=== PATIENT | male | born 1960 | race Caucasian/White ===

== ENCOUNTER → 2020-07-22 11:05 | Outpatient (CLI) | payer BC, SELFPAY ==
[2020-07-22 11:33] LABS: Basophils # 0.1 K/mm3 (0-0.2); Eosinophils # 0.3 K/mm3 (0.0-0.4); Eosinophils % 3.1 % (0.1-12.0); Hematocrit 49.9 % (42.0-52.0); Lymphocytes # 2.6 K/mm3 (0.7-4.5); Lymphocytes % 27.6 % (10-50); Mean Corpuscular Hemoglobin 29.6 pg (27.0-31.2); Mean Platelet Volume 6.8 fl (7.4-10.4); Monocytes # 0.5 K/mm3 (0.1-1.0); Monocytes % 5.3 % (1.7-9.3); Neutrophils # 5.9 K/mm3 (1.8-7.8); Neutrophils % 62.9 % (37.0-80.0); Platelet Count 255 K/mm3 (142-424); Red Blood Count 5.73 M/mm3 (4.60-6.20); Red Cell Distribution Width 13.7 % (11.5-17.5); White Blood Count 9.4 K/mm3 (4.8-10.8)
[2020-07-22 11:48] LABS: Chloride 98 mmol/L (98-107); Potassium 4.7 mmoL/L (3.5-5.1); Sodium 138 mmol/L (136-145)
[2020-07-22 11:51] LABS: Anion Gap 11.7 mEq/L (5-15); Blood Urea Nitrogen 8 mg/dl (9-20); Calcium 9.8 mg/dl (8.4-10.2); Carbon Dioxide 33 mmol/L (22.0-30.0); Estimated Glomerular Filt Rate 86 ml/min (>60); GFR (African American) 104 ML/MIN (>60); Glucose 162 mg/dl (74-100)
[2020-07-22 16:50] LABS: Coronavirus 19 IgG Antibody Negative (Negative); Coronavirus 19 IgM Antibody Negative (Negative)
[2020-07-22 18:12] LABS: Barbiturates Screen,Urine Negative ng/ml (<200); Benzodiazepines Screen,Urine Positive ng/ml (<200)
[2020-07-22 18:13] LABS: Amphetamine/Metha Screen,Urine Negative ng/ml (<1000)
[2020-07-22 18:14] LABS: Cannabinoid Screen,Urine Negative ng/ml (<50); Cocaine Screen,Urine Negative ng/ml (<300)
[2020-07-22 18:15] LABS: Methadone Screen,Urine Negative ng/ml (<300)
[2020-07-22 18:16] LABS: Opiate Screen,Urine Negative ng/ml (<300); Phencyclidine Screen,Urine Negative ng/ml (<25)
== END ==
PROVIDERS: Visit Provider Anesthesiology
DX: Z01.818 Encounter for other preprocedural examination (principal); M51.36 Other intervertebral disc degeneration, lumbar region
CPT/HCPCS: 36415; 80048; 80305; 85025; 86328

== ENCOUNTER 2020-07-23 11:10 | Day surgery (SDC) | payer BC, SELFPAY ==
[2020-07-23 11:38] VITALS: BP 148/97; PULSE 95; RESP 18; TEMP 36.5; O2SAT 98; BMI 28.3
--- NOTE | 2020-07-23 12:33 | P.CONS_ITS ---
Assessment and Plan - Assessment and plan all Dx Assessment and Plan for all problems:: Impression-degenerative disc disease of the lumbar spine with radiculopathy Plan-placement of pain pump system today HPI - Data of Consult Patient: new to practice Consult date: 07/23/20 Requesting Physician: Niels Joel MD Primary Care Provider: Ck Juarez MD - Consult Narrative Reason for consult: Degenerative disc disease of the lumbar spine with radiculopathy History of present illness: Mr. Ignacio is a 59 year old male with chronic back pain who is tried many options over the years for pain relief without success. He had a pain stimulator trial with 60 to 70% improvement. He comes in today for placement of a pain pump system. CC: Niels Joel MD [facility] History I have reviewed the patient's past medical history: Yes Medical History: Denies:: Cancer, Diabetes Mellitus Type 1, Diabetes Mellitus Type 2, Internal Pacemaker, MRSA, Seizures *Have you ever received a pneumonia vaccine?: No *Have you received a flu vaccine this season?: No Other Medical History: Denies: Blood Transfusion Reaction Comment:: Illnesses-cigarette abuse, coronary artery disease with history of stents, hypertension, coronary artery disease with history of MD, asthma, CVA with TIAs, degenerative disc disease, anxiety depression Other Surgeries: No: Pacemaker Amputation: No Fractures: No Comment: Operations-cardiac cath with stents, colectomy with colostomy and colostomy closure for diverticulitis, angioplasty with stents - *Social History Last grade of school completed: High school graduate Smoking Status: Current every day smoker Tobacco Type: e-cigarettes # Packs/Day (cigarettes): 1 Alcohol Intake: current Alcohol Intake Frequency:: holidays/special occasions only *Occupational Status:: unemployed, disabled Housing: house Household Members: spouse *Travel in the last 8 weeks: None Family Hx:: No significant family history Review of Systems - Review of Systems Review of systems:: pertinent systems reviewed and negative unless documented below Meds Home Medications Medication Instructions Recorded Confirmed Type diazePAM [Diazepam 10 mg tablet] 10 mg PO NEEDED PRN 07/21/20 07/21/20 History Sulfamethoxazole/Trimethoprim 1 each PO BID #14 tab 07/23/20 Rx [Bactrim DS tablet] Allergies Allergy/AdvReac Type Severity Reaction Status Date / Time hydrocodone Allergy Verified 07/21/20 10:47 Penicillins Allergy Verified 07/21/20 10:47 Objective Vital signs: Temp Pulse Resp BP Pulse Ox 97.7 F 95 H 18 148/97 H 98 07/23/20 11:38 07/23/20 11:38 07/23/20 11:38 07/23/20 11:38 07/23/20 11:38 no acute distress Comments: Pale white male in no distress - *Routine Respiratory Exam Present: decreased breath sounds, CTA bilaterally - *Routine Cardiovascular Exam Present: RRR - *Routine Abdominal Exam Present: soft, normoactive bowel sounds. Absent: tenderness
--- NOTE | 2020-07-23 15:05 | HMH.ANESCL ---
[facility] Anesthesia Checklist - Structural Data Admitted From: Home Planned Operative Procedure/s: pain pump insertion Consent for Planned Operative Procedure(s) Verified: Yes - Additional verifications Anesthesia Reactions: No Hx Blood Transfusions: No Blood Transfusion Reaction: No - Airway Assessment C-Spine Mobility Assessed: Yes TMJ Mobility Assessed: Yes Dentition: Edentulous - Neurological Assessment Level of Consciousness: Awake, Alert, Appropriate - Anesthesia Plan Anesthesia Risk discussed: Yes Anesthesia Plan: Verified ASA Class: IV Anesthesia Type: MAC [facility] History I have reviewed the patient's past medical history: Yes Medical History: Denies:: Cancer, Diabetes Mellitus Type 1, Diabetes Mellitus Type 2, Internal Pacemaker, MRSA, Seizures *Have you ever received a pneumonia vaccine?: No *Have you received a flu vaccine this season?: No Other Medical History: Denies: Blood Transfusion Reaction Anesthesia experience/problems:: none Other Surgeries: No: Pacemaker Amputation: No Fractures: No - *Social History Last grade of school completed: High school graduate Smoking Status: Current every day smoker Tobacco Type: e-cigarettes # Packs/Day (cigarettes): 1 Alcohol Intake: current Alcohol Intake Frequency:: holidays/special occasions only Substance Use Type: former substance user *Occupational Status:: unemployed, disabled Housing: house Household Members: spouse *Travel in the last 8 weeks: None Family Hx:: No significant family history
--- NOTE | 2020-07-23 15:15 | HMH.OPNOTE ---
Date of procedure: 07/23/20 Pre-op Diagnosis:: Degenerative disc disease of the lumbar spine with radiculopathy Post-op Diagnosis:: Same Procedure performed:: Placement of intrathecal pain pump generator Surgeon:: Jackson Edwards MD MANAGER BENEFIT:: Justyn Rowell, Clement Dominguez, Urbano Toro, Cuco Crum, Other Anesthesia: MAC Estimated blood loss (mL): 5 Operative findings:: Not applicable Operative note:: Patient was placed prone on the operating table and his back and flank regions were prepped and draped in sterile fashion. Once adequate IV sedation was obtained utilizing anesthesia and local anesthesia utilizing 1% Xylocaine with epinephrine a paraspinal incision was made by Dr. Khan which an intrathecal catheter was passed into the intrathecal space to the area desired by Dr. Burnett. The catheter was fixed the paraspinal fascia with fixation devices and 2-0 Prolene sutures. A right flank incision was then made under which is made a pocket for placement of the reservoir. Catheter was passed from the paraspinal incision of the pocket incision utilize a tunneling device. Catheter then fixed to the generator which was placed in the pocket. Generator sutured underlying fascia with a 2-0 Prolene suture. CSF was aspirated from the generator noting patency of the system. Both pockets irrigated with antibiotic solution. Subcutaneous tissues closed with 0 Vicryl. Skin closed with 4-0 nylon sutures. Wound VAC dressing and binder applied to the wound. The patient tolerated suture well and was taken to the recovery room in stable condition. Upon recovery will be discharged home follow-up in 1 week for removal of the wound VAC bandage and in 2 weeks for removal of the sutures. 1 week of antibiotic postop per protocol. The patient tolerated the procedure well Condition: stable Disposition: PACU Complications:: None
--- NOTE | 2020-07-23 15:22 | P.OP_ITS ---
Date of procedure: 07/23/20 Pre-op Diagnosis:: Degenerative disc disease of spine with cervical radiculopathy symptoms and increasing neck pain. Degenerative disc disease of the thoracic spine with thoracic radiculopathy symptoms Post-op Diagnosis:: Same Procedure performed:: Intrathecal catheter placement with tunneling for permanent intrathecal pain pump Surgeon:: Niels Joel MD BUSINESS PROCESS EXPERT:: Justyn Rowell Anesthesia: MAC Estimated blood loss (mL): 5 Clinical Note:: Patient is a pleasant 59-year-old white male who is referred by Dr. Fernando Lomeli for placement of intrathecal pain pump. He underwent a psychological evaluation which was successful. He has failed all previous conservative therapy including physical therapy, injections and oral medications. He is not a surgical candidate. He is not on any oral narcotics. He is on diazepam 10 mg given to him by Dr. Lomeli for anxiety. He has been off of this for the last week. He got 80% relief with his intrathecal pump trial. He presents for permanent placement with us today. He would like to us to manage his pain pump after implant. Operative findings:: None Operative note:: Informed consent was obtained the risk and benefits of the procedure were explained to the patient. Patient was taken the operating room placed prone on the procedure table. He was prepped and draped in sterile fashion. C-arm fluoroscopy was used to view the lumbar spine. The skin and subcutaneous tissues were anesthetized using lidocaine adjacent to the L4-5 and L5-S1 interspace. I made an incision and dissected down to the lumbar paraspinous fascia. A 14-gauge spinal needle was inserted and advanced into the L4-5 interspace until clear CSF was obtained. After this intrathecal catheter was inserted and advanced very easily to the T6 vertebral body. The stylette of the catheter and the needle withdrawn. The cath was secured to the fascia with 2 anchoring devices and 2-0 Prolene. I prepared the pump with 20 mils of intrathecal morphine 5 mg/mL while Dr. Edwards prepared the pump pocket. I tunneled the catheter from the back to the pump pocket and attached the catheter to the pump. The pump was placed in the pocket the pump was secured to the fascia with 2-0 Prolene. Both incisions were irrigated with bacitracin solution . We were also able to withdraw very easily CSF from the side-port. Both incisions were then closed with 2-0 Vicryl followed by 4-0 nylon. A wound VAC was placed over both incisions. Patient was placed in an abdominal binder and taken recovery in stable condition. Pump was programmed by the [employer] risk control field representative and started at 0.5 mg/day of intrathecal morphine. Patient tolerated the procedure well with no complications. Patient was discharged home neurologically intact with good relief of pain symptoms. I did caution the patient against taking any Valium with the intrathecal narcoti c infusion. Plan and disposition: We will follow-up with this patient in 1 week for wound check and reprogramming. We will follow-up in 2 weeks for suture removal. We will give him his PTC if 1 of these follow-up visits. If he has any problems or questions she is to call us back in the pain clinic. Condition: stable Disposition: PACU Complications:: None
[2020-07-23 15:45] VITALS: BP 140/107; PULSE 85; RESP 18; O2SAT 96
[2020-07-23 15:56] VITALS: BP 140/90; PULSE 94; RESP 18; TEMP 36.4; O2SAT 97
[2020-07-23 16:01] VITALS: BP 146/92; PULSE 86; RESP 18; O2SAT 97
[2020-07-23 16:15] VITALS: BP 142/86; PULSE 86; RESP 18; O2SAT 99
[2020-07-23 16:45] VITALS: BP 146/84; PULSE 82; RESP 18; O2SAT 97
--- NOTE | 2020-07-25 13:06 | PC.NURSE ---
called in RX to [facility] in [facility] per md order. Flomax 0.4mg po daily. no refills.
== END 2020-07-23 16:45 | disposition home or self-care (01) ==
LOC: OR 11:17
PROVIDERS: PCP Internal Medicine Adolescent Medicine; Visit Provider Anesthesiology
PROC: (CPT 62350; principal; 2020-07-23 13:00)
DX: M50.10 Cervical disc disorder with radiculopathy, unspecified cervical region (principal); M51.14 Intervertebral disc disorders with radiculopathy, thoracic region; F19.11 Other psychoactive substance abuse, in remission; I25.10 Atherosclerotic heart disease of native coronary artery without angina pectoris; I10 Essential (primary) hypertension; Z86.73 Personal history of transient ischemic attack (TIA), and cerebral infarction without residual deficits; Z72.0 Tobacco use; Z88.0 Allergy status to penicillin; Z88.1 Allergy status to other antibiotic agents; Z88.8 Allergy status to other drugs, medicaments and biological substances; Z79.899 Other long term (current) drug therapy
CPT/HCPCS: 62350; 62362; 96374; C1755; C1772; J1956; J3370

== ENCOUNTER → 2020-07-31 15:11 | Outpatient (POV) | payer BC, SELFPAY ==
[2020-07-31 15:53] VITALS: BP 140/77; PULSE 84; RESP 18; TEMP 36.8; O2SAT 98; BMI 28.1
--- NOTE | 2020-07-31 16:23 | HMH.PMPROC ---
- Procedure Date: 07/31/20 Time: 16:23 Anesthesiologist:: Destiney Guzmán APRN Complications:: None Pre-procedure Diagnosis:: Degenerative disc disease cervical and thoracic spine, thoracic and cervical radiculopathy symptoms Post-procedure Diagnosis:: Same Indications for Procedure:: Patient is a 59-year-old white male who presents today for follow-up after intrathecal pain pump placement. Patient had his intrathecal pain pump placed on July 23. A few days post implant, the patient began to develop severe nausea vomiting with nuchal rigidity. He also had diarrhea along with urinary complications and diaphoresis. Patient did go to the emergency room and Dr. Joel was contacted via the emergency room provider. Patient presents to the clinic today with reports that some of his symptoms have improved, however, he is continuing to have nausea with vomiting and feels as though he is going to pass out. He says his urinary hesitancy has improved. He has no longer taking his Flomax. Patient does take Valium with his intrathecal therapy. He was educated regarding the Valium with intrathecal therapy. He is continuing to take the medication. Patient says that he was getting great pain relief 2 days post procedure, however, all of his subsidiary symptoms did present causing him to have worsening pain. Patient is currently on morphine at 0.5 mg/day. He says he has taken morphine in the past with no issues. He does admit, however, that he he is very sensitive to most medications. Patient does rate his pain a 2 out of 10 at this time. He says he is continuing to have some itching along with nausea and vomiting at this time. Physical exam General: Alert and oriented x3, no acute distress, pleasant and cooperative, [on room air] Lungs: Respirations even and unlabored, symmetrical chest expansion Eyes: PERRL Musculoskeletal: Flexion and extension of: Lumbar spine somewhat guarded secondary to pain, deep tendon reflexes normal, strength in upper and lower extremities [5/5], [abnormal gait noted] Neurological: Speech clear, top installer equal, no gross sensory deficit Procedure Details:: Informed consent was obtained and the risk and benefits of the procedure were explained to the patient. Patient was taken to the procedure room where noninvasive monitoring was placed including noninvasive blood pressure cuff and pulse oximeter. Patient's pump was interrogated and was reprogrammed to morphine at 0.25 mg/day. The patient tolerated the procedure well with no complications. Plan and Disposition:: Patient was decreased to morphine at 0.25 mg/day. I did discuss the plan of care with Dr. vicente and he was in agreement. We will plan to see the patient back in the clinic in 2 weeks to reassess his symptoms. Patient incision is well approximated with no redness, no drainage, no edema is noted to the site. The patient did report that he was unable to wear either binder that he was given upon discharge at the day of his implant. He says that it causes severe itching as well as irritation to his skin. I have advised the patient the reason for both binders, however, patient says he is unable to tolerate them. Patient has been advised if his symptoms continue to contact the clinic. Again, I have advised him the concerns of taking Valium with his intrathecal therapy. The patient and I specifically discussed risk factors for COVID19. These risks include, but are not limited to age greater than 60, heart or lung disease, diabetes, immunosuppression, and travel. We also discussed NSAIDs may worsen COVID19 infection or symptoms. Patient should not use NSAIDs to treat COVID19 signs or symptoms. Patient was also informed that any type of corticosteroid of any form (oral or injection) will decrease the patient's immune system response and may increase the likelihood of COVID19 infection [address] symptoms[address] Joel has reviewed this note and agrees with this plan of
== END ==
PROVIDERS: PCP Internal Medicine Adolescent Medicine; Visit Provider Clinical Nurse Specialist Family Health
DX: M50.10 Cervical disc disorder with radiculopathy, unspecified cervical region (principal); M51.14 Intervertebral disc disorders with radiculopathy, thoracic region
CPT/HCPCS: 62368

== ENCOUNTER → 2020-08-14 14:35 | Outpatient (POV) | payer BC, SELFPAY ==
[2020-08-14 15:00] VITALS: BP 139/78; PULSE 85; RESP 20; TEMP 36.7; O2SAT 985; BMI 28.0
--- NOTE | 2020-08-21 08:35 | HMH.PMPROC ---
- Procedure Date: 08/14/20 Time: 08:35 Anesthesiologist:: Destiney Guzmán APRN Complications:: None Pre-procedure Diagnosis:: Degenerative disc disease cervical and thoracic spine with cervical and thoracic radiculopathy symptoms Post-procedure Diagnosis:: Same Indications for Procedure:: Patient is a 59-year-old white male who presents today for suture removal and to discuss his new intrathecal therapy. He is reporting to have some diaphoresis with his intrathecal therapy. He would like to decrease his dose. The patient is currently on 0.25 mg/day. He says that it is helping with his pain, however, he would like to decrease in the dose to see if this helps with his symptoms. Patient's Jelani and drug screens have been appropriate. We will also remove his sutures today. Physical exam General: Alert and oriented x3, no acute distress, pleasant and cooperative, [on room air] Lungs: Respirations even and unlabored, symmetrical chest expansion Eyes: PERRL Musculoskeletal: Flexion and extension of thoracic and cervical spine somewhat guarded secondary to pain, deep tendon reflexes normal, strength in upper and lower extremities [5/5], [abnormal gait noted] Neurological: Speech clear, nurse receptionist equal, no gross sensory deficit Integumentary: Incision well approximated, no redness, no drainage, no edema noted. Sutures removed Procedure Details:: Informed consent was obtained and the risk and benefits of the procedure were explained to the patient. Patient was taken to the procedure room where noninvasive monitoring was placed including noninvasive blood pressure cuff and pulse oximeter. Patient's pump was interrogated and was reprogrammed to morphine at 0.22 mg/day. The patient tolerated the procedure well with no complications. Plan and Disposition:: We will plan to see the patient back in the clinic in 2 weeks to reassess his symptoms. He has been instructed to contact the clinic if he has any concerns before his next appointment. The patient and I specifically discussed risk factors for COVID19. These risks include, but are not limited to age greater than 60, heart or lung disease, diabetes, immunosuppression, and travel. We also discussed NSAIDs may worsen COVID19 infection or symptoms. Patient should not use NSAIDs to treat COVID19 signs or symptoms. Patient was also informed that any type of corticosteroid of any form (oral or injection) will decrease the patient's immune system response and may increase the likelihood of COVID19 [address] symptoms[address] Joel has reviewed this note and agrees with this plan of care. This note was dictated using voice recognition software and make contain errors or omissions.
== END ==
PROVIDERS: PCP Internal Medicine Adolescent Medicine; Visit Provider Clinical Nurse Specialist Family Health
DX: M50.10 Cervical disc disorder with radiculopathy, unspecified cervical region (principal); M54.14 Radiculopathy, thoracic region
CPT/HCPCS: 62368

== ENCOUNTER → 2020-08-28 14:22 | Outpatient (POV) | payer BC, SELFPAY ==
[2020-08-28 14:37] VITALS: BP 138/88; PULSE 79; RESP 18; O2SAT 97; BMI 28.8
--- NOTE | 2020-08-28 14:58 | HMH.PAINSOAP ---
[facility] Pain Management SOAP Note Subjective:: Patient is a pleasant 59-year-old white male who presents today for follow-up. He is being treated for chronic neck and mid back pain with cervical and thoracic radiculopathy symptoms. Patient does have an intrathecal pain pump. He was reporting to have some diaphoresis at his previous visit. As a result his medication was changed from morphine at 0.25 mg/day to morphine at 0.22 mg/day. The patient tolerated the decrease in medication without any problems. He says he is doing much better with his moments of diaphoresis. He rates his pain a 5 out of 10 today. He says that it is soreness more than anything. He is complaining of myofascial pain to his bilateral upper trapezius muscles as well as his cervical paraspinous muscles today. The patient does feel that the pain is tension related. He is inquiring about a raised area noted to his incisional area midline. He says that it is very sensitive to the area. Review of Systems General: No recent weight changes, no fever, no sleep disturbances Respiratory: No cough, no shortness of air, no recurring pulmonary infections Cardiovascular/peripheral vascular: No chest pain, no palpitations, no edema, no shortness of breath Gastrointestinal: No new onset incontinence, normal bowel movements reported Genitourinary: No new onset incontinence Musculoskeletal: Neck pain pain Psychiatric: Normal mood/affect Neurological: [Denies weakness in extremities], [denies balance issues] Objective:: Physical exam General: Alert and oriented x3, no acute distress, pleasant and cooperative, [on room air] Lungs: Respirations even and unlabored, symmetrical chest expansion Eyes: PERRL Musculoskeletal: Flexion and extension of cervical spine somewhat guarded secondary to pain, deep tendon reflexes normal, strength in upper and lower extremities [5/5], normal gait noted Neurological: Speech clear, sample puller equal, no gross sensory deficit Assessment:: Degenerative disc disease cervical spine with cervical radiculopathy symptoms, degenerative disc disease thoracic spine with thoracic radiculopathy symptoms Plan:: The patient is doing better with his intrathecal therapy since his small decrease in medication. The patient's Jelani #[id number] has been reviewed and is appropriate. His morphine equivalent is 0. His drug screens have been appropriate. He is having some myofascial pain to his cervical paraspinous and upper trapezius muscles. He has tried massage therapy with no relief. He has also tried using ice and heat therapies. We will plan for upper trapezius and cervical paraspinous muscle trigger point injections bilaterally. We will also schedule the patient for an intrathecal pain pump refill date for 3 months. See him back in the clinic after his trigger point injections to reassess his symptoms. He has been instructed to contact the clinic if he has any concerns before his next appointment. The patient and I specifically discussed risk factors for COVID19. These risks include, but are not limited to age greater than 60, heart or lung disease, diabetes, immunosuppression, and travel. We also discussed NSAIDs may worsen COVID19 infection or symptoms. Patient should not use NSAIDs to treat COVID19 signs or symptoms. Patient was also informed that any type of corticosteroid of any form (oral or injection) will decrease the patient's immune system response and may increase the likelihood of COVID19 [address] Joel has reviewed this note and agrees with this plan of care. This note was dictated using voice recognition software and make contain errors or omissions. [facility] History I have reviewed the patient's past medical history: Yes Medical History: Denies:: Cancer, Diabetes Mellitus Type 1, Diabetes Mellitus Type 2, Internal Pacemaker, MRSA, Seizures *Have you ever received a pneumonia vaccine?: Yes *Have you received a flu vaccine thi
== END ==
PROVIDERS: PCP Internal Medicine Adolescent Medicine; Visit Provider Clinical Nurse Specialist Family Health
DX: M50.10 Cervical disc disorder with radiculopathy, unspecified cervical region (principal); M51.14 Intervertebral disc disorders with radiculopathy, thoracic region
CPT/HCPCS: 62368

== ENCOUNTER 2020-09-08 14:02 | Day surgery (SDC) | payer BC, SELFPAY ==
[2020-09-08 14:41] VITALS: BP 165/87; PULSE 89; RESP 18; TEMP 36.8; O2SAT 98; BMI 28.8
--- NOTE | 2020-09-08 15:11 | HMH.PMPROC ---
- Procedure Date: 09/08/20 Time: 15:11 Anesthesiologist:: Poonam Hernandes APRN Complications:: None Pre-procedure Diagnosis:: Myofascial pain syndrome Post-procedure Diagnosis:: Same Indications for Procedure:: Patient is a pleasant 59-year-old white male who presents today for trigger point injections of the right trapezius muscle and cervical paraspinous muscle. Patient rates his pain today a 5 out of 10. He is currently on a morphine intrathecal pain pump which is working well for him. He gets 70% relief of his pain with this. Patient denies any side effects to this. We will move forward with trigger point injections today. He does have palpable trigger points on the right side and his trapezius muscles and cervical paraspinous. Procedure Details:: Procedure: Informed consent was obtained and the risk and benefits of the procedure were explained to the patient. Patient was taken to the procedure room. Cervical paraspinous and trapezius muscles in the right side was prepped using ChloraPrep as a cleansing solution. Trigger points were palpated and marked. Each of these trigger points were injected with 3 mL's of bupivacaine 0.25 and Depo-Medrol 10 mg. A total of 80 milligrams of Depo-Medrol was used for 8 trigger point injections. Bandages were placed over the injection sites. Patient tolerated the procedure well with no complications. Plan and Disposition:: We will see the patient back in several weeks reassess his symptoms at that time he has been instructed to call the office if he has any issues prior to his next appointment. Dr. Joel has reviewed this note and agrees with this plan of care. This note was dictated using voice recognition software and may contain errors or omissions
[2020-09-08 15:13] VITALS: BP 117/78; PULSE 87
[2020-09-08 15:14] VITALS: BP 119/78; PULSE 85; RESP 18; O2SAT 98
[2020-09-08 15:32] VITALS: BP 140/85; PULSE 82; RESP 18; O2SAT 98
== END 2020-09-08 15:34 | disposition home or self-care (01) ==
LOC: SC.PAINP 14:04
PROVIDERS: PCP Internal Medicine Adolescent Medicine; Visit Provider Clinical Nurse Specialist Family Health
DX: M79.18 Myalgia, other site (principal); J45.909 Unspecified asthma, uncomplicated; F41.9 Anxiety disorder, unspecified; F32.9 Major depressive disorder, single episode, unspecified; G43.909 Migraine, unspecified, not intractable, without status migrainosus; Z86.73 Personal history of transient ischemic attack (TIA), and cerebral infarction without residual deficits
CPT/HCPCS: 20552; J1040

== ENCOUNTER 2020-10-20 13:31 | Day surgery (SDC) | payer BC, SELFPAY ==
[2020-10-20 13:52] VITALS: BP 154/86; PULSE 75; RESP 18; TEMP 36.6; O2SAT 98; BMI 29.2
[2020-10-20 14:09] VITALS: BP 165/74; PULSE 85; RESP 18; O2SAT 98
[2020-10-20 14:15] VITALS: BP 165/74; PULSE 88; RESP 18; O2SAT 99
--- NOTE | 2020-10-20 14:23 | HMH.PMPROC ---
- Procedure Date: 10/20/20 Time: 14:23 Anesthesiologist:: Poonam Hernandes APRN Complications:: None Pre-procedure Diagnosis:: Degenerative disc disease cervical spine cervical radiculopathy, Post-procedure Diagnosis:: Same Indications for Procedure:: Patient is pleasant 60-year-old white male who presents today for intrathecal pain pump refill and reprogram. We did decrease his morphine and he is doing well he rates his pain today 3 out of 10. Patient states that he is having some feverish chills he states that he feels like he has an infection. He does have fluid around his pump. We will remove some fluid and sent it for cultures after his pain pump refill. Patient's Jelani #[id number] reviewed and appropriate. Procedure Details:: Informed consent was obtained and the risk and benefits of the procedure were explained to the patient. The patient was taken to the procedure room where noninvasive monitoring was placed including noninvasive blood pressure cuff and pulse oximeter. Patient's pump was interrogated. The area over the pump was cleansed with chlorhexidine as a cleansing solution. In sterile fashion the pump was accessed with a 22-gauge needle. Approximately 15 mL's were removed of the pump solution and discarded appropriately. The pump was then refilled with 20 mL's of morphine 5 mg/mL. The needle was withdrawn and a bandage was placed over the puncture site. The patient was then prepped again with ChloraPrep a 22-gauge needle was used to access the pocket around the pump 20 mL of fluid was withdrawn. The fluid was cloudy. The infusion rate was reprogrammed to 0.22 mg/day. The patient tolerated the procedure well. Plan and Disposition:: We will start the patient on Bactrim DS 1 tab p.o. twice daily for 7 days. Will send the fluid off for culture. I will follow-up with him in the office after culture has returned. Dr. Joel has reviewed this note and agrees with this plan of care. This note was dictated using voice recognition software and may contain errors or omissions
[2020-10-20 14:34] VITALS: BP 149/92; PULSE 79; RESP 18; O2SAT 98
== END 2020-10-20 14:35 | disposition home or self-care (01) ==
LOC: SC.PAINP 13:32
PROVIDERS: PCP Internal Medicine Adolescent Medicine; Visit Provider Clinical Nurse Specialist Family Health
DX: M50.10 Cervical disc disorder with radiculopathy, unspecified cervical region (principal); Z45.1 Encounter for adjustment and management of infusion pump; Z88.8 Allergy status to other drugs, medicaments and biological substances; Z88.2 Allergy status to sulfonamides; I50.9 Heart failure, unspecified; J45.909 Unspecified asthma, uncomplicated; F41.9 Anxiety disorder, unspecified; Z86.73 Personal history of transient ischemic attack (TIA), and cerebral infarction without residual deficits
CPT/HCPCS: 87070; 95991

== ENCOUNTER 2021-01-19 14:18 | Day surgery (SDC) | payer BC, SELFPAY ==
[2021-01-19 14:18] VITALS: BP 166/81; PULSE 81; RESP 18; TEMP 36.6; O2SAT 98; BMI 28.8
[2021-01-19 14:42] VITALS: BP 159/92; PULSE 81; RESP 18
[2021-01-19 14:43] VITALS: BP 158/92; PULSE 79; RESP 18; O2SAT 98
--- NOTE | 2021-01-19 14:47 | HMH.PMPROC ---
- Procedure Date: 01/19/21 Time: 14:47 Anesthesiologist:: Poonam Hernandes APRN Complications:: None Pre-procedure Diagnosis:: Degenerative disc disease cervical spine cervical radiculopathy, neck pain Post-procedure Diagnosis:: Same Indications for Procedure:: Patient is a pleasant 60-year-old white male who presents today for intrathecal pain pump refill and reprogram. Patient is doing well on his current morphine dose of 0.22 mg/day. He does have some fluid collected around his pump. This was sent off for cultures which came back negative. We will drain it again today. Patient had 100 mL out. Patient states that he will not be wearing his abdominal binder I counseled him that compression would be the best thing for the fluid collection. Patient understands. Patient's Jelani #[id number] reviewed and appropriate. Patient does not need any changes today. Procedure Details:: Informed consent was obtained and the risk and benefits of the procedure were explained to the patient. The patient was taken to the procedure room where noninvasive monitoring was placed including noninvasive blood pressure cuff and pulse oximeter. Patient's pump was interrogated. The area over the pump was cleansed with chlorhexidine as a cleansing solution. In sterile fashion the pump was accessed with a 22-gauge needle. Approximately 16 mL's were removed of the pump solution and discarded appropriately. The pump was then refilled with 20 mL's of morphine 5 mg/mL. The needle was withdrawn and a bandage was placed over the puncture site. The infusion rate was reprogrammed to continue at 0.22 mg/day. The patient tolerated the procedure well. Plan and Disposition:: We will see the patient back at his next intrathecal pain pump refill and reprogram he has been instructed to call the office if he has any issues prior to his next appointment. Dr. Joel has reviewed this note and agrees with this plan of care. This note was dictated using voice recognition software and may contain errors or omissions
[2021-01-19 15:03] VITALS: BP 179/87; PULSE 83; RESP 18; O2SAT 98
== END 2021-01-19 15:04 | disposition home or self-care (01) ==
LOC: SC.PAINP 14:18
PROVIDERS: PCP Internal Medicine Adolescent Medicine; Visit Provider Clinical Nurse Specialist Family Health
DX: M50.10 Cervical disc disorder with radiculopathy, unspecified cervical region (principal); Z45.1 Encounter for adjustment and management of infusion pump; I50.9 Heart failure, unspecified; I25.10 Atherosclerotic heart disease of native coronary artery without angina pectoris; I25.2 Old myocardial infarction; J45.909 Unspecified asthma, uncomplicated; Z95.818 Presence of other cardiac implants and grafts; Z86.73 Personal history of transient ischemic attack (TIA), and cerebral infarction without residual deficits; Z90.49 Acquired absence of other specified parts of digestive tract; Z88.1 Allergy status to other antibiotic agents; Z88.0 Allergy status to penicillin; Z88.8 Allergy status to other drugs, medicaments and biological substances
CPT/HCPCS: 95991

== ENCOUNTER 2021-06-01 14:21 | Day surgery (SDC) | payer BC, SELFPAY ==
[2021-06-01 14:32] VITALS: BP 128/76; PULSE 94; RESP 18; TEMP 36.7; O2SAT 99; BMI 27.3
[2021-06-01 15:21] VITALS: BP 133/79; PULSE 92; RESP 18; O2SAT 98
[2021-06-01 15:29] VITALS: BP 127/80; PULSE 93; RESP 18; O2SAT 99
--- NOTE | 2021-06-01 15:40 | HMH.PMPROC ---
- Procedure Date: 06/01/21 Time: 15:40 Anesthesiologist:: Destiney Guzmán APRN Complications:: None Pre-procedure Diagnosis:: Degenerative disc disease cervical spine with cervical radiculopathy symptoms, neck pain Post-procedure Diagnosis:: Same Indications for Procedure:: Patient is a pleasant 60-year-old white male who presents today for intrathecal pain pump refill and reprogram. He has been treated for degenerative disc disease cervical spine with cervical radiculopathy symptoms. He rates his pain a 4 out of 10 today. He would like a small increase. He does have a history of side effects to the medication with higher increases. He also is noted to have fluid around his intrathecal pump. We will remove the fluid around the pump today and access his pump and refill today. His Jelani and drug screen are appropriate. He does say that he has fluid accumulation around his pump often and does have to have fluid removed. At the last refill on 01/19/2021 he did have 100 mL removed around the intrathecal site. The fluid was sent off for cultures and was negative. He is currently on a dose of morphine at 0.22 mg/day Physical exam General: Alert and oriented x3, no acute distress, pleasant and cooperative, [on room air] Lungs: Respirations even and unlabored, symmetrical chest expansion Eyes: PERRL Musculoskeletal: Flexion and extension of cervical [spine] somewhat guarded secondary to pain, strength in upper and lower extremities [5/5], [antalgic gait noted] Neurological: Speech clear, [health care marketing manager equal], no gross sensory deficit Procedure Details:: Informed consent was obtained and the risk and benefits of the procedure were explained to the patient. The patient was taken to the procedure room where noninvasive monitoring was placed including noninvasive blood pressure cuff and pulse oximeter. Patient's pump was interrogated. The area over the pump was cleansed with chlorhexidine as a cleansing solution. Approximately 70 mL of drainage removed from pump site. in sterile fashion the pump was accessed with a 22-gauge needle. Approximately 14 mls of the pump solution was removed and discarded appropriately. The pump was then refilled with 20 mL's of morphine 5 mg per mill. The needle was withdrawn and a bandage was placed over the puncture site. The infusion rate was reprogrammed at morphine 0.225 mg/day. The patient tolerated well with no complication. Plan and Disposition:: We will see the patient back at the next refill. If the patient has any questions, contact the clinic. Patient has been instructed to contact the clinic with any concerns before the next appointment. Dr. Joel has reviewed this note and agrees with this plan of care. This note was dictated using voice recognition software and make contain errors or omissions.
[2021-06-01 15:49] VITALS: BP 115/75; PULSE 90; RESP 20; O2SAT 99
== END 2021-06-01 15:50 | disposition home or self-care (01) ==
LOC: SC.PAINP 14:22
PROVIDERS: PCP Internal Medicine Adolescent Medicine; Visit Provider Clinical Nurse Specialist Family Health
DX: M50.10 Cervical disc disorder with radiculopathy, unspecified cervical region (principal)
CPT/HCPCS: 62370

== ENCOUNTER 2021-09-22 13:16 | Day surgery (SDC) | payer BC, SELFPAY ==
[2021-09-22 13:24] VITALS: BP 140/79; PULSE 79; RESP 18; TEMP 36.6; O2SAT 99; BMI 28.8
--- NOTE | 2021-09-22 13:43 | HMH.PMPROC ---
- Procedure Date: 09/22/21 Time: 13:43 Anesthesiologist:: Destiney Guzmán APRN Complications:: None Pre-procedure Diagnosis:: Degenerative disc disease cervical spine with cervical radiculopathy symptoms, neck pain Post-procedure Diagnosis:: Same Indications for Procedure:: Patient is a pleasant [ ] who presents today for intrathecal pain pump 60-year-old white male [and reprogram]. The patient is being treated for neck pain which is worsening at this time.. Patient rates pain a [ ] out of 10. Drug screen is appropriate. Jelani [ ] has been reviewed and is appropriate. Patient says that the pain to his neck area is getting worse. He says when he first had the pump placed that he got significant relief but does not feel the pump is giving him much relief at this time. He did have extreme side effects with morphine when initially implanted. He had changes in taste, smell, as well as severe headache and nausea vomiting. Those symptoms have subsided but he is cautious in increasing dosing. He is currently on morphine at 0.22 mg/day of morphine. At this time, he is not having side effects. Physical exam General: Alert and oriented x3, no acute distress, pleasant and cooperative, [on room air] Lungs: Respirations even and unlabored, symmetrical chest expansion Eyes: PERRL Musculoskeletal: Flexion and extension of focal [spine] somewhat guarded secondary to pain, normal gait noted Neurological: Speech clear, no gross sensory deficit Procedure Details:: Informed consent was obtained and the risk and benefits of the procedure were explained to the patient. The patient was taken to the procedure room where noninvasive monitoring was placed including noninvasive blood pressure cuff and pulse oximeter. Patient's pump was interrogated. The area over the pump was cleansed with chlorhexidine as a cleansing solution. In sterile fashion the pump was accessed with a 22-gauge needle. Approximately 10 mls of the pump solution was removed and discarded appropriately. The pump was then refilled with 20 mL's of morphine 5 mg per male. The needle was withdrawn and a bandage was placed over the puncture site. The infusion rate was reprogrammed at increased to morphine at 0.018 mg every 2 hours. The patient tolerated well with no complication. Plan and Disposition:: See if patient gets relief with periodic flow in his intrathecal pump. If he has any side effects he will call the clinic. Risks and benefits of the medication have been explained in detail to the patient. The patient does understand the risk of dependence on the medication when given over a prolonged period. Patient has been advised of risks of oversedation with the prescribed medication. Narcan has been offered to the paitent in the event of oversedation. Patient has been advised that a family member should also be educated regarding administration of Narcan. The patient has been advised to consult with his/her primary care provider and pharmacist regarding drug-drug interaction of medications currently prescribed. Patient has been prescribed a controlled substance after being counseled on the medication, medication safety, and possible side effects. JELANI report has been obtained and reviewed prior to prescription and found to be appropriate. Opioid contract was reviewed and signed by the patient, and that they have agreed to all of the terms set forth by our compliance program. Patient has been instructed to contact the clinic with any concerns before the next appointment. Dr. Joel has reviewed this note and agrees with this plan of care. This note was dictated using voice recognition software and make contain errors or omissions.
[2021-09-22 13:46] VITALS: BP 134/67; PULSE 78; RESP 18; O2SAT 99
[2021-09-22 13:49] VITALS: PULSE 80; RESP 18; O2SAT 99
[2021-09-22 14:07] VITALS: BP 140/70; PULSE 78; RESP 20; O2SAT 100
== END 2021-09-22 14:09 | disposition home or self-care (01) ==
LOC: SC.PAINP 13:20
PROVIDERS: PCP Internal Medicine Adolescent Medicine; Visit Provider Clinical Nurse Specialist Family Health
DX: M50.10 Cervical disc disorder with radiculopathy, unspecified cervical region (principal); Z45.1 Encounter for adjustment and management of infusion pump
CPT/HCPCS: 62370

== ENCOUNTER → 2021-09-22 14:20 | Outpatient (CLI) | payer BC, SELFPAY ==
[2021-09-22 15:43] LABS: Amphetamine/Metha Screen,Urine Negative ng/ml (<1000)
[2021-09-22 15:44] LABS: Barbiturates Screen,Urine Negative ng/ml (<200); Benzodiazepines Screen,Urine Positive ng/ml (<200)
[2021-09-22 15:45] LABS: Cannabinoid Screen,Urine Negative ng/ml (<50)
[2021-09-22 15:46] LABS: Cocaine Screen,Urine Negative ng/ml (<300); Methadone Screen,Urine Negative ng/ml (<300)
[2021-09-22 15:47] LABS: Opiate Screen,Urine Negative ng/ml (<300)
[2021-09-22 15:48] LABS: Phencyclidine Screen,Urine Negative ng/ml (<25)
== END ==
PROVIDERS: Visit Provider Clinical Nurse Specialist Family Health
DX: Z79.891 Long term (current) use of opiate analgesic (principal)
CPT/HCPCS: 80305

== ENCOUNTER 2022-01-18 13:25 | Day surgery (SDC) | payer BC, SELFPAY ==
[2022-01-18 13:41] VITALS: BP 147/78; PULSE 76; RESP 20; TEMP 36.8; O2SAT 98; BMI 30.4
[2022-01-18 13:44] VITALS: BP 148/94; PULSE 81; RESP 18; O2SAT 98
[2022-01-18 13:46] VITALS: BP 145/92; PULSE 83; RESP 20; O2SAT 98
--- NOTE | 2022-01-18 13:54 | HMH.PMPROC ---
- Procedure Date: 01/18/22 Time: 13:54 Anesthesiologist:: Edward Freeman CRNA Complications:: None Pre-procedure Diagnosis:: Generative disc disease cervical spine with cervical radiculopathy symptoms. Degenerative disc disease lumbar spine multilevels. Lumbar radicular symptoms. Post-procedure Diagnosis:: Same Indications for Procedure:: She is a very pleasant 1-year-old male who presents today for intrathecal pain pump refill. Patient is currently being managed with intrathecal morphine 5 mg/mL at 0.216 mg/day. Patient states the current settings are helping him significantly. He does not describe any excess pain or discomfort. Patient seems to be tolerating the medicines without complications. Procedure Details:: Details of the procedure were explained. Patient was taken the procedure room placed in the prone position on the fluoroscopy table. The area over the pain pump was cleaned using chlorhexidine solution. The pump was accessed using a 22-gauge needle. 15 mL of medication was removed. This medication was discarded appropriately. The pump was then filled with morphine sulfate 5 mg/mL. The rate was not changed. He will continue it 0.216 mg/day. Patient tolerated the procedure without difficulty. There were no complications. Plan and Disposition:: Patient will see us in 3 months for pump refill. Jelani was reviewed and is appropriate. #[id number].
[2022-01-18 13:59] VITALS: BP 139/76; PULSE 77; RESP 20; O2SAT 98
== END 2022-01-18 13:59 | disposition home or self-care (01) ==
LOC: SC.PAINP 13:28
PROVIDERS: PCP Internal Medicine Adolescent Medicine; Visit Provider Nurse Anesthetist, Certified Registered
DX: M50.10 Cervical disc disorder with radiculopathy, unspecified cervical region (principal); M51.16 Intervertebral disc disorders with radiculopathy, lumbar region; Z45.1 Encounter for adjustment and management of infusion pump
CPT/HCPCS: 95991

== ENCOUNTER 2022-05-28 11:06 | Day surgery (SDC) | payer BC, SELFPAY ==
[2022-05-28 11:16] VITALS: BP 126/69; PULSE 69; RESP 18; TEMP 36.3; O2SAT 98; BMI 30.4
[2022-05-28 11:21] VITALS: BP 132/81; PULSE 65; RESP 20; O2SAT 98
--- NOTE | 2022-05-28 11:25 | HMH.PMPROC ---
- Procedure Date: 05/28/22 Time: 11:25 Anesthesiologist:: Edward Freeman CRNA Complications:: None Pre-procedure Diagnosis:: Denerative disc disease lumbar spine multilevels. Lumbar radiculopathy symptoms. Degenerative disc disease cervical spine. Cervical radiculopathy symptoms. Post-procedure Diagnosis:: Same Indications for Procedure:: Patient is a very pleasant 61-year-old male who comes to our clinic today for intrathecal pain pump interrogation and refill. He currently has morphine sulfate 5 mg/mL at 0.2160 mg/day. He states he is not having any complications or side effects from the medication. He rates his pain 1 or 2 out of 10. He is very pleased with his current settings. We will refill his pump today. Procedure Details:: Details of the procedure were explained to the patient. The patient was taken the procedure room placed in the sitting position. The area over the pump was cleaned using chlorhexidine as a cleansing solution. A 22-gauge needle was used to access the pump without difficulty. 15 mL of solution was withdrawn and discarded appropriately. The pump was then filled with 20 cc of morphine sulfate 5 mg/mL. He we will continue him on his current rate of 0.2160 mg/day. Plan and Disposition:: Patient was discharged without incident.
[2022-05-28 11:29] VITALS: BP 107/67; PULSE 67; RESP 20; O2SAT 98
== END 2022-05-28 11:30 | disposition home or self-care (01) ==
LOC: SC.PAINP 11:07
PROVIDERS: PCP Internal Medicine Adolescent Medicine; Visit Provider Nurse Anesthetist, Certified Registered
DX: M51.16 Intervertebral disc disorders with radiculopathy, lumbar region (principal); M50.10 Cervical disc disorder with radiculopathy, unspecified cervical region
CPT/HCPCS: 95991

== ENCOUNTER 2022-10-12 11:35 | Day surgery (SDC) | payer BC, SELFPAY ==
[2022-10-12 11:56] VITALS: BP 122/68; PULSE 71; RESP 18; TEMP 36.9; O2SAT 96; BMI 30.4
[2022-10-12 12:06] VITALS: BP 126/81; PULSE 71; RESP 18; O2SAT 97
[2022-10-12 12:23] VITALS: BP 109/74; PULSE 70; RESP 18; O2SAT 96
--- NOTE | 2022-10-12 12:31 | EXP.PAIN.PRO ---
Procedure Date: 10/12/22 Time: 11:40 Anesthesiologist:: Edward Freeman CRNA Complications:: None Pre-procedure Diagnosis:: Degenerative disc disease cervical spine multiple levels. Cervical radiculopathy. Cervical postlaminectomy syndrome. Post-procedure Diagnosis:: Same. Indications for Procedure:: Very pleasant 59-year-old male that comes our clinic today for intrathecal pain pump refill. He is currently being managed with morphine sulfate 5 mg/mL at 0.216 mg/day. He is being managed with periodic flow every 2 hours. Patient is requesting a slight increase today. Patient had been increased almost a year ago and became extremely nauseous with vomiting. He is asking for a very small increase due to increase cervical and upper thoracic pain. Procedure Details:: Details of the procedure were explained to the patient. The patient taken procedure room placed in the sitting position. The area over the pump was cleansed using chlorhexidine as a cleansing solution. Using a 22-gauge inch and a half needle the pump was accessed with ease. 14.5 mL was withdrawn and discarded appropriately. The pump was then filled with 20 cc of morphine sulfate 5 mg/mL. We will increase his rate by 3% today. His new rate is 0.2-2 0 mg/day. Plan and Disposition:: Patient was discharged without incident.
== END 2022-10-12 12:23 | disposition home or self-care (01) ==
LOC: SC.PAINP 11:35
PROVIDERS: PCP Internal Medicine Adolescent Medicine; Visit Provider Nurse Anesthetist, Certified Registered
DX: M50.10 Cervical disc disorder with radiculopathy, unspecified cervical region (principal); M96.1 Postlaminectomy syndrome, not elsewhere classified
CPT/HCPCS: 62370

== ENCOUNTER 2023-02-01 14:18 | Day surgery (SDC) | payer BC, SELFPAY ==
[2023-02-01 14:39] VITALS: BP 131/78; PULSE 73; RESP 18; TEMP 36.2; O2SAT 97; BMI 30.4
[2023-02-01 14:52] VITALS: BP 143/80; PULSE 74; RESP 18; O2SAT 97
[2023-02-01 14:59] VITALS: BP 143/80; PULSE 74; RESP 18; O2SAT 97
--- NOTE | 2023-02-01 15:09 | EXP.PAIN.PRO ---
Procedure Date: 02/01/23 Time: 14:45 Anesthesiologist:: Edward Freeman CRNA Complications:: None Pre-procedure Diagnosis:: Degenerative disc disease lumbar spine multilevels. Degenerative disc disease cervical spine multilevels. Cervical radiculopathy. Cervical postlaminectomy syndrome. Lumbar radiculopathy. Post-procedure Diagnosis:: Same Indications for Procedure:: Patient is a very pleasant 62-year-old male that comes our clinic today for intrathecal pain pump interrogation and refill. Patient currently being managed with morphine sulfate 5 mg/mL at 0.216 mg/day. He is being managed with periodic flow. Patient asking for a slight increase in the rate today. Patient states he has had issues in the past with rate being increased to high. Nausea, vomiting, general malaise. We will increase him by 5% today. Procedure Details:: Details of procedure explained the patient. Patient taken to procedure room placed in the sitting position. The area over the pump was cleansed using chlorhexidine as a cleansing solution. The pump was interrogated. The pump was accessed with ease using 22-gauge inch and a half needle. 15.7 mL of solution was withdrawn and discarded appropriately. The pump was then filled with 20 cc of morphine sulfate 5 mg/mL. The pump was increased by 5%. His new rate is 0.2328 mg/day. Patient tolerated procedure without difficulty. There are no complications. Plan and Disposition:: Patient was discharged without incident.
[2023-02-01 15:10] VITALS: BP 121/70; PULSE 72; RESP 20
== END 2023-02-01 15:10 | disposition home or self-care (01) ==
PROVIDERS: PCP Internal Medicine Adolescent Medicine; Visit Provider Nurse Anesthetist, Certified Registered
DX: Z45.1 Encounter for adjustment and management of infusion pump (principal); M51.16 Intervertebral disc disorders with radiculopathy, lumbar region; M50.10 Cervical disc disorder with radiculopathy, unspecified cervical region
CPT/HCPCS: 62370

== ENCOUNTER 2023-05-03 14:54 | Day surgery (SDC) | payer BC, SELFPAY ==
[2023-05-03 15:02] VITALS: BP 128/69; PULSE 64; RESP 18; TEMP 36.3; O2SAT 98; BMI 30.4
[2023-05-03 15:08] VITALS: BP 136/70; PULSE 64; RESP 18; O2SAT 99
[2023-05-03 15:10] VITALS: BP 136/70; PULSE 64; RESP 18; O2SAT 99
[2023-05-03 15:17] VITALS: BP 126/71; PULSE 61; RESP 18; O2SAT 98
--- NOTE | 2023-05-03 15:18 | P.PCN_ITS ---
Procedure Date: 05/03/23 Time: 15:15 Anesthesiologist:: Edward Freeman CRNA Complications:: None Pre-procedure Diagnosis:: Degenerative disc disease lumbar spine multilevels. Lumbar radiculopathy. Post-procedure Diagnosis:: Same. Indications for Procedure:: Patient is a very pleasant 62-year-old male that comes our clinic today for intrathecal pain pump interrogation refill. Currently is being managed with morphine sulfate 5 mg/mL at 0.216 mg/day. He is being managed with periodic mellisa w. Patient asking for slight increase today due to increased pain in thoracic spine area with activity. Patient does not complain of any side effects or complications regarding the intrathecal pain pump management. He rates his pain 3/10. Procedure Details:: Details of the procedure explained to the patient. The patient taken to procedure room placed in sitting position. The area over the pump was cleansed with chlorhexidine as a cleansing solution. The pump was interrogated. The pump was then accessed easily with a 22-gauge inch and a half needle. 14.1 mL of solution was withdrawn and discarded appropriately. The pump was then filled incrementally with 20 cc containing morphine sulfate 5 mg/mL. The pump was increased to 0.26 mg/day. Plan and Disposition:: Patient was discharged without incident.
== END 2023-05-03 15:17 | disposition home or self-care (01) ==
PROVIDERS: PCP Internal Medicine Adolescent Medicine; Visit Provider Nurse Anesthetist, Certified Registered
DX: M51.16 Intervertebral disc disorders with radiculopathy, lumbar region (principal)
CPT/HCPCS: 95991

== ENCOUNTER 2023-08-09 13:03 | Day surgery (SDC) | payer BC, SELFPAY ==
[2023-08-09 13:17] VITALS: BP 125/78; PULSE 84; RESP 16; TEMP 36.3; O2SAT 97; BMI 31.1
--- NOTE | 2023-08-09 13:37 | P.PCN_ITS ---
Procedure Date: 08/09/23 Time: 13:25 Anesthesiologist:: Edward Freeman CRNA Complications:: None Pre-procedure Diagnosis:: Degenerative disc lumbar spine multilevels. Lumbar radiculopathy. Post-procedure Diagnosis:: Same. Indications for Procedure:: Patient is a pleasant 62-year-old male that comes our clinic today for intrathecal pain pump interrogation and refill. He is currently being managed with morphine sulfate 5 mg/mL at 0.26 mg/day. Patient complaining of some low back pain he describes as dull, intermittent, aching. Patient requesting slight increase in intrathecal pain pump rate. He does not report any side effects or complications at this time. Procedure Details:: Details of the procedure explained to the patient. The patient taken to procedure room placed in the sitting position. The area over the pump was clean ed using chlorhexidine as a cleansing solution. The pump was interrogated. The pump was accessed with ease using a 22-gauge inch and a half needle. 16 mL of solution was withdrawn discarded appropriately. The pump was then filled with 20 cc of a solution containing morphine sulfate 5 mg/mL. The pump rate was increased by 5% today. Patient's new rate now is 0.2772 mg/day. Plan and Disposition:: Patient was discharged without incident.
[2023-08-09 13:40] VITALS: BP 131/71; PULSE 79; RESP 18; O2SAT 97
[2023-08-09 13:43] VITALS: BP 131/71; PULSE 79; RESP 18; O2SAT 97
[2023-08-09 13:45] VITALS: BP 123/64; PULSE 72; RESP 18; O2SAT 97
== END 2023-08-09 13:45 | disposition home or self-care (01) ==
PROVIDERS: PCP Internal Medicine Adolescent Medicine; Visit Provider Nurse Anesthetist, Certified Registered
DX: M51.16 Intervertebral disc disorders with radiculopathy, lumbar region (principal); Z97.8 Presence of other specified devices
CPT/HCPCS: 95991

== ENCOUNTER → 2023-09-02 14:07 | Outpatient (POV) | payer BC, SELFPAY ==
[2023-09-02 14:34] VITALS: BP 148/78; PULSE 71; RESP 18; O2SAT 99; BMI 30.4
--- NOTE | 2023-09-02 14:46 | A.OFFVIS_ITS ---
[facility] Pain Management SOAP Note Subjective:: Patient is a very pleasant 62-year-old male that comes our clinic today for follow-up visit. Patient currently being managed with intrathecal pain pump morphine sulfate 5 mg/mL at 0.2772 mg/day. He is on periodic flow. Patient reports having overall arthritis type pain. Minimal low back pain. However, he reports cervical pain, shoulder pain, hand pain. Patient reports he has been told by PCP he has a lot of arthritis generally speaking. Patient asking for treatment options. Patient not interested in increasing intrathecal pain pump rate due to side effects he has experienced in the past. These include gastrointestinal, nausea vomiting. I discussed in detail with the patient regarding the option of adding bupivacaine to the intrathecal pain pump. This would be in addition to the morphine. He is interested in trying. I answered his questions. The patient unable to take NSAIDs due to gastrointestinal issues. His Jelani #[id number] has been reviewed and appropriate. Objective:: Patient is awake alert [place] x3. In no acute distress. Flexion-extension lumbar spine somewhat guarded secondary to pain. Deep tendon reflexes upper lower extremities normal. There is no gross sensory deficit. Gait is normal. Assessment:: Degenerative disc lumbar spine multilevels. Lumbar radiculopathy. Plan:: Patient requesting home refill program. We will set this up for him. His next refill will be early November 2023 we will add bupivacaine to the pump. [facility] Disclaimer: The information contained in this section may have been updated after the patient was seen, as this information can be updated by other users. Medical History Hyperlipemia Hypertension Myocardial infarction Rupture of colon Surgical History History of colectomy History of open heart surgery Family History Other No significant family history Social History Smoking Status: Never smoker alcohol intake: never substance use type: former substance user current occupational status: unemployed Travel in the last 8 weeks: None household members: other housing: house current occupational exposures/hazards: No caffeine: Yes
== END ==
PROVIDERS: PCP Nurse Anesthetist, Certified Registered; Visit Provider Nurse Anesthetist, Certified Registered
DX: M51.16 Intervertebral disc disorders with radiculopathy, lumbar region (principal); Z97.8 Presence of other specified devices
CPT/HCPCS: 99212; G0463

== ENCOUNTER 2024-11-09 14:59 | Day surgery (SDC) | payer BC, SELFPAY ==
[2024-11-09 15:33] VITALS: BP 126/60; PULSE 68; RESP 16; TEMP 36.4; O2SAT 97; BMI 30.4
--- NOTE | 2024-11-09 16:04 | P.PCN_ITS ---
Procedure Date: 11/09/24 Time: 16:05 Anesthesiologist:: Gilma Lopez APRN Complications:: None Pre-procedure Diagnosis:: Degenerative disc disease of lumbar spine with lumbar radiculopathy symptoms Post-procedure Diagnosis:: Same Indications for Procedure:: Patient is a pleasant 64-year-old male who presents today for intrathecal refill and reprogram. Today he rates his pain a 8 out of 10. He denies any new trauma or injury. He does state that he is been having more of a headache here lately and just has his chronic aches and pains.Patient is currently managed with morphine 5 mg/mL with a daily dose of 0.3048 mg/day and bupivacaine 2.5 mg/mL with a daily dose of 0.1524 mg/day. Patient denies any side effects from this medication. His Jelani has been reviewed and is appropriate. Physical Exam: General: Alert and oriented x3, no acute distress, pleasant and cooperative Lungs: Respirations even and unlabored, symmetrical chest expansion Eyes: PERRL Musculoskeletal: Flexion and extension of lumbar [spine] somewhat guarded secondary to pain, [antalgic gait noted] Neurological: Speech clear, no gross sensory deficit Procedure Details:: Informed consent was obtained and the risk and benefits of the procedure were explained to the patient. The patient had noninvasive monitoring placed including noninvasive blood pressure cuff and pulse oximeter. Patient's pump was interrogated. The area over the pump was cleansed with chlorhexidine as a cleansing solution. In sterile fashion the pump was accessed with a 22-gauge needle. Approximately 12.9 mls of the pump solution was removed and discarded appropriately. The pump was then refilled with 20 mL's of morphine 5 mg/mL. The needle was withdrawn and a bandage was placed over the puncture site. The infusion rate was reprogrammed and continued at 0.3048 mg/day. The patient tolerated well with no complication. Plan and Disposition:: Patient tolerated his intrathecal refill and reprogram with no complications and was discharged neurologically intact. Patient's medication that was ordered from [facility] was made in error without the bupivacaine 2.5 mg/mL. Patient was filled with the morphine 5 mg/mL. We will make sure on his next refill that the bupivacaine is ordered in addition to the morphine to be put back in his pump. Patient did state prior to leaving our office the headache had already went away. I did discuss in future we may have to look at replacing his pump and catheter due to the system no longer being in production or having support. Patient states that he would like to wait as long as possible. We will continue to monitor this at future visits. Patient will return to clinic on or before his next intrathecal refill date.\ We will see the patient back in the clinic at the next intrathecal refill. Patient has been instructed to contact the clinic with any concerns before the next appointment. Dr. Joel has reviewed this note and agrees with this plan of care. This note was dictated using voice recognition software and make contain errors or omissions. -- It Is medically necessary for this patient to continue to have their intrathecal pump refilled at regular intervals. This patient had an intrathecal pain pump implanted after meeting criteria of chronic intractable pain for greater than 3 months and failing conservative treatments. Patient has committed and been compliant to the treatment plan and all planned follow up care. Since implantation of the intrathecal pain pump, the patient has had decreased pain and been more functional. Oral medications have been reduced including intake of oral opioids. Patient continues to do well with intrathecal therapy with decrease in pain symptoms and increase in functional status. Stopping intrathecal medications can lead to life threatening withdrawal, seizures, cardiac arrest, severe pain, and possible . Pumps that are not refilled at regular intervals can be damages and cause and need for replacement. We continu ally titrate dose and concentration to optimize pain relief and function. We are limited in concentration for certain drugs to safely deliver medications through the pump and stay within the recommendations from the [employer] Guidelines. Depending on dose and concentration these pumps may need to be refilled sooner than 3 months as we titrate. A UDS is needed to verify patient's compliance with our office pain contract. This is ordered based off specific treatments related to chronic pain with the potential to abuse certain medications.
[2024-11-09 16:23] VITALS: BP 130/77; PULSE 64; RESP 16; O2SAT 97
== END 2024-11-09 16:23 | disposition home or self-care (01) ==
PROVIDERS: PCP Internal Medicine Adolescent Medicine; Visit Provider Nurse Practitioner Family
DX: M51.16 Intervertebral disc disorders with radiculopathy, lumbar region (principal)
CPT/HCPCS: 62370